=== PATIENT | male | born 1945 | race Caucasian/White ===

== ENCOUNTER 2016-10-10 23:15 | Emergency (ER) | payer MEDICARE, OTHER ==
[2016-10-10 23:29] VITALS: BP 151/74; PULSE 80; TEMP 97.6; BMI 31.2
--- NOTE | 2016-10-10 23:42 | EDPRACDOC ---
- General Information Source: Patient - History of Present Illness Onset: 30 min [employer] HPI: PATIENT TRIPPED ON STAIRS AND FELL FORWARD CAUSING A LACERATION TO FOREHEAD. NO LOC. DENIES NAUSEA. TAKES AGGRENOX FOR PRIOR CVA Pain Severity: Reports: Mild Injuries/Pain Location: Reports: head, face Reason for Fall: Reports: tripped Loss of Consciousness: no loss of consciousness <Kar Ibanez - Last Filed: 10/11/16 02:51> <Naif Shah - Last Filed: 10/11/16 03:03> - General Chief Complaint: Fall Stated Complaint: FALL: HEAD LACERATION Time Seen by Provider: 10/10/16 23:35 - History of Present Illness Allergies/Adverse Reactions: Allergies No Known Allergies Allergy (Verified 10/10/16 23:23) Home Medications: Ambulatory Orders Tramadol HCl/Acetaminophen [Tramadol-Acetaminophn 37.5-325] 1 each PO Q4 #20 tablet 10/11/16 ED Past Medical History - History Reviewed Yes Nurses notes reviewed and agree except as marked Travel Outside of [place] in the Last 3 Months?: No - Patient Medical History Neurological History: Reports: Cerebrovascular Accident Cardiac History: Reports: Hypertension Psychological History: Denies: Depression - Social Medical History Smoking Status: Never smoker Substance Abuse: None Lives With: Family Lives In: Home <Kar Ibanez - Last Filed: 10/11/16 02:51> EDM Review of Systems - Review of Systems ROS Negative Except as Marked: Yes All systems reviewed and were negative except as marked Constitutional: No Symptoms Reported. negative: Fever, Chills, Weakness, Fatigue, Loss of Appetite Eyes: No Symptoms Reported. negative: Redness, Blurred Vision, Double Vision, Discharge, Pain, Light Sensitive, Photophobia Ears: No Symptoms Reported. negative: Pain, Hearing Loss, Drainage, Ear Pulling Throat: No Symptoms Reported. negative: Pain, Swelling Nose: No Symptoms Reported. negative: Congestion, Bleeding, Discharge, Injection, Swelling, Deformity, Ecchymosis, Tender, Abrasion, Laceration Mouth: No Symptoms Reported. negative: Pain, Drooling Respiratory: No Symptoms Reported. negative: Cough, Brassy Cough, Barky Cough, Shortness of Breath, Wheezing, Hemoptysis Cardiovascular: No Symptoms Reported. negative: Chest Pain, Palpitations, Syncope, Edema, Orthopnea, PND, Skin Mottling, Cyanosis Gastrointestinal: No Symptoms Reported. negative: Pain, Constipation, Nausea, Vomiting, Diarrhea, Melena, Formula Intolerance Genitourinary: No Symptoms Reported. negative: Dysuria, Hematuria, Frequency, Discharge, Bleeding, Testicular Pain, Neurological: No Symptoms Reported. negative: Headache, Dizziness, Seizure, Numbness, Weakness, Speech Difficulty, Gait Difficulty Musculoskeletal: No Symptoms Reported. negative: Neck, Chestwall, Ribs, Back, Shoulder, Arm, Elbow, Forearm, Wrist, Hand, Pelvis, Hip, Femur, Knee, Leg, Ankle , Foot Integumentary: Wound. negative: Bruising, Itching, Rash Allergic/Immunologic: No Symptoms Reported. negative: Hives, Itching Hematologic: No Symptoms Reported. negative: Lymphadenopathy, Easy Bruising, Easy Bleeding Endocrine: No Symptoms Reported. negative: Weight Gain, Weight Loss Psychiatric: No Symptoms Reported. negative: Anxiety, Depression, Hallucinations, Insomnia, Suicidal <Kar Ibanez - Last Filed: 10/11/16 02:51> - Physical Exam Constitutional: Alert (Awake) Oriented to: Time, Person, Place Last recorded Vital Signs: Last Vital Signs Temp 97.6 F 10/10/16 23:17 Pulse 80 10/10/16 23:17 Resp 18 10/10/16 23:17 BP 151/74 10/10/16 23:17 Pulse Ox 100 10/10/16 23:17 Oxygen Pulse Oxygen Saturation 100 O2 Device Room Air Oxygen Flow Rate Fraction of Inspired Oxygen ( FIO2) - HEENT Head: Laceration (10 CM LACERATION TO FOREHEAD- IRREGULAR AND JAGGED) Eye Exam: Normal (PERRL, EOMI, Sclera white) Oropharynx: Normal (Pharynx:Moist without exudate,Gums-no swelling) Tympanic Membrane: Normal ENT EAC: Normal TMJ: Normal Nose: No Symptoms Reported (septum midline) Neck: Normal (FROM, trachea at midline) - Respiratory/Cardiovascular Respiratory: Normal - CTA (BBS clear to auscultation without adventitious sounds ) Cardiovascular: Normal (RRR without murmur, gallop or rub) - GI Auscultation: Normal (NABS) Palpation: Normal (Soft,No rebound or guarding, non distended) Tenderness: Non tender Galeas's Sign: Negative - Musculoskeletal Back: Normal (Non-Tender) Extremities: Normal (Normal tone, Pulses 2+ No cyanosis or edema, FROM) - Integumentary Skin: Normal, Warm, Dry Lymphatics: Normal (no adenopathy) - Neurologic Memory Impaired: Normal Motor Function: Normal (Normal tone, Pulses 2+ No cyanosis or edema, FROM) Cranial Nerve: Normal (CN II-X11 intact sensation, strength 5/5) Cerebellar: Normal Mood Description: Normal Perception: Normal <Kar Ibanez - Last Filed: 10/11/16 02:51> - Physical Exam Last recorded Vital Signs: Last Vital Signs Temp 97.6 F 10/10/16 23:17 Pulse 80 10/10/16 23:17 Resp 18 10/10/16 23:17 BP 151/74 10/10/16 23:17 Pulse Ox 100 10/10/16 23:17 Oxygen Pulse Oxygen Saturation 100 O2 Device Room Air Oxygen Flow Rate Fraction of Inspired Oxygen ( FIO2) <Naif Shah - Last Filed: 10/11/16 03:03> ED Injury/Fall Exam - Physical Exam Head Injury: ecchymosis, flap, lacerations, swelling, tenderness Extremity Exam: no evidence of injury Skin: Normal <Naif Shah - Last Filed: 10/11/16 03:03> ED Procedures - Suture/Laceration Suture #1 Upper Medial Head Wound Length (cm): 7 Wound's Depth, Shape: superficial, irregular Wound Explored: clean Irrigated w/ Saline (ccs): 100 Betadine Prep?: Yes Anesthesia: 1% Lidocaine Volume Anesthetic (ccs): 10 Wound Debrided: minimal Wound Undermining: minimal Wound Margins: Revised, Flaps aligned Wound Repaired With: Sutures Suture Size/Type: 6:0, 5:0, nylon Number of Sutures: 23 Layer Closure?: No Sterile Dressing Applied?: No Splint Applied?: No Sling Applied?: No Progress: performed by Naif Shah <Naif Shah - Last Filed: 10/11/16 03:03> - Departure Yes I personally saw and evaluated the patient. Disposition: Home Education/Counseling Given To: Patient Education/Counseling Given Regarding: Diagnosis, Treatment, Prognosis, Follow Up <Kar Ibanez - Last Filed: 10/11/16 02:51> Decision Time to Discharge: 03:02 <Naif Shah - Last Filed: 10/11/16 03:03> - Departure Condition: Good Final Diagnosis: Scalp laceration Qualifiers: Encounter type: initial encounter Qualified Code(s): S01.01XA - Laceration without foreign body of scalp, initial encounter Head injury Qualifiers: Encounter type: initial encounter Qualified Code(s): S09.90XA - Unspecified injury of head, initial encounter Instructions: RICE: Routine Care for Injuries, Laceration (ED) Referrals: Chintan Meyers MD [Primary Care Provider] - One Week Prescriptions: Tramadol HCl/Acetaminophen [Tramadol-Acetaminophn 37.5-325] 1 each PO Q4 #20 tablet
[2016-10-10] MEDS ORDERED: OXYCODONE HCL 5 MG TABLET PO ONE (23:43)
--- NOTE | 2016-10-11 00:28 | DIRPT ---
CLINICAL DATA: 71-year-old male with fall EXAM: CT HEAD WITHOUT CONTRAST CT CERVICAL SPINE WITHOUT CONTRAST TECHNIQUE: Multidetector CT imaging of the head and cervical spine was performed following the standard protocol without intravenous contrast. Multiplanar CT image reconstructions of the cervical spine were also generated. COMPARISON: None. FINDINGS: CT HEAD FINDINGS There is asymmetric prominence of the right ventricle likely related to right hemispheric volume loss and ex vacuo dilatation. Periventricular and deep white matter hypodensities represent chronic microvascular ischemic changes. There is no intracranial hemorrhage. No mass effect or midline shift identified. The visualized paranasal sinuses and mastoid air cells are well aerated. The calvarium is intact. Right forehead laceration. CT CERVICAL SPINE FINDINGS There is no acute fracture or subluxation of the cervical spine.There is multilevel degenerative changes with endplate irregularity and disc space narrowing predominantly at C5-C6 and C6-C7. TheThe odontoid and spinous processes are intact.There is normal anatomic alignment of the C1-C2 lateral masses. The visualized soft tissues appear unremarkable. There is a 3.7 cm right thyroid nodule. Ultrasound may provide better evaluation. IMPRESSION: No acute intracranial hemorrhage. Age-related atrophy and chronic microvascular ischemic disease. No acute/traumatic cervical spine pathology. Electronically Signed By: Toni Almonte M.D. On: 10/11/2016 00:25
== END 2016-10-11 03:08 | disposition home or self-care (01) ==
LOC: ED 23:15
DX: S01.01XA Laceration without foreign body of scalp, initial encounter (principal); S09.90XA Unspecified injury of head, initial encounter; W10.9XXA Fall (on) (from) unspecified stairs and steps, initial encounter; Y93.9 Activity, unspecified
CPT/HCPCS: 12014; 70450; 72125; 99282; J3490